=== PATIENT | female | born 1975 | race Caucasian/White ===

== ENCOUNTER 2017-01-23 16:25 | Emergency (ER) | payer OTHER ==
[2017-01-23 16:51] VITALS: BMI 27.4
[2017-01-23 16:58] LABS: BASOPHIL 3.8 % (0-2.0); EOSINOPHIL 1.1 % (0-4.5); MCH 28.8 pg (25.7-33.7); MCHC 33.3 g/dl (32.0-36.0); MEAN CELL VOLUME 86.6 fl (80-96); MEAN PLT VOLUME 8.2 fl (7.5-11.1); NEUTROPHILS 55.4 % (42.8-82.8); PLATELET COUNT 244 K/MM3 (134-434); RDW 14.7 % (11.6-15.6); WHITE BLOOD COUNT 6.6 K/mm3 (4.0-10.0)
[2017-01-23 17:09] LABS: INR 1.1 (0.82-1.09); PROTHROMBIN TIME (PATIENT) 12.1 SEC (9.98-11.88)
--- NOTE | 2017-01-23 17:22 | PDOC ---
History of Present Illness <SimeonAmairanijosette Garsia - Last Filed: 01/24/17 00:16> - General History Source: Patient Exam Limitations: No Limitations <Simin Painter - Last Filed: 01/24/17 00:26> - General Chief Complaint: Chest Pain Stated Complaint: CHEST PAIN Time Seen by Provider: 01/23/17 16:29 - History of Present Illness Initial Comments: 01/23/17 18:20 The patient is a 41 year old female, with significant past medical history of asthma, HTN, DM, upper, chronic Gastrointestinal issues ( last endoscopy on 01/21), bariatric surgery (6 years ago), ovarian cysts, abdominoplasty, who presents today via ambulance complaining of chest pain. She describes the pain as pressure as if someone was sitting on her chest. She notes that the chest pain was accompanied by feeling like she could not catch her breath in her throat. She administered her albuterol pump with mild relief. The patient notes that she has LLQ pain for the past month with associated diarrhea. 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 She was told that she has colitis. She states that she has a follow up appointment with her GI tomorrow and a colonoscopy scheduled for . Denies fever, chills, nausea, vomiting. Denies cough. Surgical Hx: appendectomy, partial hysterectomy (6 years ago), tubal ligation, abdominoplasty PCP- ([facility]) GI - Dr. Eduardo Munoz (Simin Painter) Past History - Past Medical History DVT: Yes (PULMUNOARY EMBOLISM) Diabetes: Yes HTN: Yes - Psycho/Social/Smoking Cessation Hx Anxiety: No Suicidal Ideation: No Smoking History: Never smoked Have you smoked in the past 12 months: No Information on smoking cessation initiated: No Hx Alcohol Use: No Drug/Substance Use Hx: No <Amairani Hendrix - Last Filed: 01/24/17 00:16> <Simin Painter - Last Filed: 01/24/17 00:26> - Past Medical History Allergies/Adverse Reactions: Allergies Allergy/AdvReac Type Severity Reaction Status Date / Time No Known Allergies Allergy Verified 01/23/17 16:36 Home Medications: Ambulatory Orders Unobtainable [Unobtainable] 01/23/17 Review of Systems <Amairani Hendrix - Last Filed: 01/24/17 00:16> <Simin Painter - Last Filed: 01/24/17 00:26> - Review of Systems Comments:: 01/23/17 18:20 CONSTITUTIONAL: Absent: fever, chills, diaphoresis, generalized weakness, malaise, loss of appetite HEENT: Absent: rhinorrhea, nasal congestion, throat pain, throat swelling, difficulty swallowing, mouth swelling, ear pain, eye pain, visual Changes CARDIOVASCULAR: Present: chest pain, SOB Absent: chest pain, syncope, palpitations, irregular heart rate, lightheadedness , peripheral edema RESPIRATORY: Absent: cough, dyspnea with exertion, orthopnea, wheezing, stridor, hemoptysis GASTROINTESTINAL: Present: LLQ abdominal pain Absent: abdominal distension, nausea, vomiting, diarrhea, constipation, melena , hematochezia GENITOURINARY: Absent: dysuria, frequency, urgency, hesitancy, hematuria, flank pain, genital pain MUSCULOSKELETAL: Absent: myalgia, arthralgia, joint swelling SKIN: Absent: rash, itching, pallor HEMATOLOGIC/IMMUNOLOGIC: Absent: easy bleeding, easy bruising, lymphadenopathy, frequent infections ENDOCRINE: Absent: unexplained weight gain, unexplained weight loss, heat intolerance, cold intolerance NEUROLOGIC: Absent: headache, focal weakness or paresthesias, dizziness, unsteady gait, seizure, mental status changes, bladder or bowel incontinence PSYCHIATRIC: Absent: anxiety, depression, suicidal or homicidal ideation, hallucinations. (Simin Painter) *Physical Exam <Lincoln Hendrixa Sun - Last Filed: 01/24/17 00:16> <Simin Painter - Last Filed: 01/24/17 00:26> - Vital Signs Last Vital Signs Temp Pulse Resp BP Pulse Ox 98.3 F 72 22 116/77 100 01/23/17 16:34 01/23/17 16:34 01/23/17 16:34 01/23/17 16:34 01/23/17 16:34 - Physical Exam Comments: 01/23/17 18:21 GENERAL: Well developed, well nourished. Awake and alert. In no acute distress. HEENT: Normocephalic, atraumatic. PERRLA, EOMI. No conjunctival pallor. Sclera are non- icteric. Moist mucous membranes. Oropharynx is clear. NECK: Supple. Full ROM. No JVD. Carotid pulses 2+ and symmetric, without bruits. No thyromegaly. No lymphadenopathy. CARDIOVASCULAR: Regular rate and rhythm. No murmurs, rubs, or gallops. Distal pulses are 2+ and symmetric. PULMONARY: No evidence of respiratory distress. Lungs clear to auscultation bilaterally. No wheezing, rales or rhonchi. ABDOMINAL: +LLQ tenderness to deep palpation. No rebound. No guarding. Soft. Non- distended. No organomegaly. Normoactive bowel sounds. MUSCULOSKELETAL Normal range of motion at all joints. No bony deformities or tenderness. No CVA tenderness. EXTREMITIES: No cyanosis. No clubbing. No edema. No calf tenderness. SKIN: Warm and dry. Normal capillary refill. No rashes. No jaundice. NEUROLOGICAL: Alert, awake, appropriate. Cranial nerves 2-12 intact. No deficits to light touch and temperature in face, upper extremities and lower extremities. No motor deficits in the in face, upper extremities and lower extremities. Normoreflexic in the upper and lower extremities. Normal speech. Toes are downgoing bilaterally. Gait is normal without ataxia. PSYCHIATRIC: Cooperative. Good eye contact. Appropriate mood and affect. (Simin Painter) Heart Score/ECG Review <Simin Painter - Last Filed: 01/24/17 00:26> #1 01/24/17 00:24 Normal sinus rhythm at a rate of 71bpm. PRT axes 50 24 17 (Simin Painter) #2 01/24/17 00:25 Sinus bradycardia with a rate of 54bpm. PRT axes 43 22 21 (Simin Painter) ED Treatment Course - LABORATORY CBC & Chemistry Diagram: 01/23/17 16:45 01/23/17 16:45 <Amairani Hendrix - Last Filed: 01/24/17 00:16> - LABORATORY CBC & Chemistry Diagram: 01/23/17 16:45 01/23/17 16:45 <Simin Painter - Last Filed: 01/24/17 00:26> - ADDITIONAL ORDERS Additional order review: Laboratory Results 01/23/17 01/23/17 01/23/17 23:00 16:45 16:45 INR D-Dimer Sodium 143 Potassium 4.4 Chloride 114 H Carbon Dioxide 20 L Anion Gap 9 BUN 13 Creatinine 0.7 Creat Clearance w eGFR > 60 Random Glucose 86 Calcium 8.0 L Total Bilirubin 0.3 AST 17 ALT 22 Alkaline Phosphatase 56 Creatine Kinase 53 51 Troponin I < 0.02 < 0.02 Total Protein 6.8 Albumin 3.4 Serum , Qual Negative 01/23/17 16:45 INR 1.10 D-Dimer 1341 H Sodium Potassium Chloride Carbon Dioxide Anion Gap BUN Creatinine Creat Clearance w eGFR Random Glucose Calcium Total Bilirubin AST ALT Alkaline Phosphatase Creatine Kinase Troponin I Total Protein Albumin Serum , Qual 01/23/17 16:45 RBC 4.23 MCV 86.6 MCHC 33.3 RDW 14.7 MPV 8.2 Neutrophils % 55.4 Lymphocytes % 30.2 Monocytes % 9.5 Eosinophils % 1.1 Basophils % 3.8 H - RADIOLOGY Radiograph Interpretation: 01/23/17 20:44 EXAM: CTA chest with contrast FINDINGS: There is no evidence of pulmonary embolism. There is no thoracic dissection. No pneumothorax. There is mild atelectasis in the lower lobes. There is trace pleural effusion. Prior gastric bypass surgery noted. THIS DOCUMENT HAS BEEN ELECTRONICALLY SIGNED Dionicio Madera MD 01/23/2017 20:12 EST (Simin Painter) - Medications Given in the ED: ED Medications Discontinued Medications Generic Name Dose Route Start Last Admin Trade Name Freq PRN Reason Stop Dose Admin Aspirin 81 mg 01/23/17 21:56 01/23/17 22:55 Asa - PO 01/23/17 21:57 81 mg ONCE ONE Administration Sodium Chloride 1,000 mls @ 1,000 mls/hr 01/23/17 17:46 01/23/17 17:54 Normal Saline - IV 01/23/17 18:45 1,000 mls/hr ASDIR STA Administration Medical Decision Making <Amairani Hendrix - Last Filed: 01/24/17 00:16> <Simin Painter - Last Filed: 01/24/17 00:26> - Medical Decision Making 01/24/17 00:09 41 yo female with chest pain that started today. she reports having an endoscopy on TuesdayJanuary 21. She has a history of colitis and is follwed by GI. She is schedulaed for colonscopy Jan 04 -no fever,no chills, no vomitng,no diarrhea -ekg did not show any ischemia, it was NSR @ 71bpm pt was observed for about 8 hours -she had 2 sets of negative cardiac enzymes -pt had positive d dimer but she also had invasive procedure 48 hours ago -c/o of feeling like she could not catch her breath resulted in CTA chest which was negative for PE,infiltrates,ptx cbc and chemistries unremarkable plan-pt to see her physician this week 01/24/17 00:15 (Amairani Hendrix) *DC/Admit/Observation/Transfer <Amairani Hendrix - Last Filed: 01/24/17 00:16> <Simin Painter - Last Filed: 01/24/17 00:26> Diagnosis at time of Disposition: Chest pain Qualifiers: Chest pain type: unspecified Qualified Code(s): R07.9 - Chest pain, unspecified - Discharge Dispostion Disposition: HOME Condition at time of disposition: Stable - Patient Instructions Printed Discharge Instructions: DI for Chest Pain Additional Instructions: please followup with your doctor this week return for any worsening symptoms - Attestations Scribe Attestion: 01/23/17 18:21 Documentation prepared by OLIVIER Moss, acting as medical equipment repairer for Amairani Hendrix MD. (Simin Painter)
[2017-01-23 17:44] LABS: ALBUMIN 3.4 g/dl (3.4-5.0); ANION GAP 9 (8-16); BILIRUBIN,TOTAL 0.3 mg/dL (0.2-1.0); CO2 20 mmol/L (21-32); CREATININE 0.7 mg/dL (0.55-1.02); GLUCOSE,RANDOM 86 mg/dL (74-106); SGOT/AST 17 U/L (15-37); SGPT/ALT 22 U/L (12-78); TOT PROT 6.8 g/dl (6.4-8.2)
[2017-01-23 17:46] LABS: ALK PHOS 56 U/L (45-117); TROPONIN I < 0.02 ng/ml (0.00-0.05)
[2017-01-23] MEDS ORDERED: SODIUM CHLORIDE 1,000 ML IV STA (17:46)
[2017-01-23] MEDS ORDERED: ASPIRIN 81 MG CHEWABLE TABLETS PO ONE (21:56)
[2017-01-23 23:42] LABS: TROPONIN I < 0.02 ng/ml (0.00-0.05)
[2017-01-24] MEDS ORDERED: ASPIRIN 81 MG CHEWABLE TABLETS ONE (00:05)
[2017-01-24 00:53] VITALS: BP 118/76; PULSE 74; TEMP 98.4
--- NOTE | 2017-01-25 07:15 | EKG ---
Test Reason : Blood Pressure : / mmHG Vent. Rate : 071 BPM Atrial Rate : 071 BPM P-R Int : 136 ms QRS Dur : 078 ms QT Int : 382 ms P-R-T Axes : 050 024 017 degrees QTc Int : 415 ms NORMAL SINUS RHYTHM NORMAL ECG NO PREVIOUS ECGS AVAILABLE Confirmed by COLBY DUNN MD ([id number]) on 01/25/2017 7:15:03 AM Referred By: Confirmed By:COLBY DUNN MD
--- NOTE | 2017-01-25 08:13 | EKG ---
Test Reason : Blood Pressure : / mmHG Vent. Rate : 054 BPM Atrial Rate : 054 BPM P-R Int : 128 ms QRS Dur : 088 ms QT Int : 416 ms P-R-T Axes : 043 022 021 degrees QTc Int : 394 ms POOR DATA QUALITY, INTERPRETATION MAY BE ADVERSELY AFFECTED SINUS BRADYCARDIA ABNORMAL ECG WHEN COMPARED WITH ECG OF 23-JAN-2017 16:33, NO SIGNIFICANT CHANGE WAS FOUND Confirmed by MONA TEIXEIRA, COLBY ([id number]) on 01/25/2017 8:12:36 AM Referred By: Confirmed By:COLBY DUNN MD
== END 2017-01-24 00:54 | disposition home or self-care (01) ==
LOC: JER 16:25
PROC: 3E0337Z Introduction of Electrolytic and Water Balance Substance into Peripheral Vein, Percutaneous Approach (ICD-10-PCS; principal; 2017-01-23)
DX: R07.89 Other chest pain (principal); I10 Essential (primary) hypertension; E11.9 Type 2 diabetes mellitus without complications; J45.909 Unspecified asthma, uncomplicated; Z98.84 Bariatric surgery status; Z86.711 Personal history of pulmonary embolism
CPT/HCPCS: 36415; 71275-TC; 80053; 82550; 84484; 84703; 85025; 85379; 85610; 93005; 93010; 96360; 99284-25